=== PATIENT | male | born 1990 | race African-American/Black ===

== ENCOUNTER 2024-04-06 06:08 | Emergency (ER) | payer OTHER ==
[2024-04-06 06:24] VITALS: BP 142/92; PULSE 79; RESP 20; TEMP 97.7; BMI 28.1
[2024-04-06] MEDS ORDERED: LIDOCAINE 4% PATCH TP ONE (06:26)
[2024-04-06] MEDS ORDERED: ACETAMINOPHEN 325 MG TABLET (FP) ONE (06:26)
[2024-04-06] MEDS: LIDOCAINE 4% PATCH TP ONE (06:31)
[2024-04-06] MEDS: ACETAMINOPHEN 325 MG TABLET (FP) PO ONE (06:32)
[2024-04-06] MEDS ORDERED: KETOROLAC TROMETHAMINE 30 MG/1 ML VIAL ONE (07:21)
[2024-04-06] MEDS: KETOROLAC TROMETHAMINE 30 MG/1 ML VIAL IM ONE (07:34)
[2024-04-06] MEDS ORDERED: LIDOCAINE PATCH REMOVAL MC SCH (22:00)
== END 2024-04-06 09:38 | disposition home or self-care (01) ==
LOC: JER 06:08
PROC: 3E0233Z Introduction of Anti-inflammatory into Muscle, Percutaneous Approach (ICD-10-PCS; principal; 2024-04-06)
DX: M54.50 Low back pain, unspecified (principal)
CPT/HCPCS: 99284-25